=== PATIENT | female | born 1950 | race Two or more races ===

== ENCOUNTER 2019-10-24 07:47 | Day surgery (SDC) | payer OTHER ==
[~2019-10-24 07:47] MED LIST: BUPROPION HCL100 M1; NORVASC5 MG; PROTONIX40 MG; SILVADENE20 GM TP; XANAX2 MG; ZANTAC300 MG
== END 2019-10-24 12:45 | disposition home or self-care (01) ==
LOC: AMB-ENDOS 07:47 → ADM 13:15
PROVIDERS: ATTEND Colon & Rectal Surgery
DX: D12.4 Benign neoplasm of descending colon (principal); K64.8 Other hemorrhoids; Z20.828 Contact with and (suspected) exposure to other viral communicable diseases; Z12.11 Encounter for screening for malignant neoplasm of colon